=== PATIENT | female | born 1975 | race Caucasian/White ===

== ENCOUNTER 2020-10-24 01:57 | Emergency (ER) | payer OTHER ==
[2020-10-24 02:01] VITALS: TEMP 98.1
[2020-10-24] MEDS ORDERED: SODIUM CHLORIDE 0.9% 1,000 ML IV ONE (02:20)
[2020-10-24] MEDS ORDERED: methylPREDNISolone SOD SUCCI 125 MG/2 ML VIAL IV STA (02:20)
[2020-10-24] MEDS ORDERED: diphenhydrAMINE 50 MG/ML 1 ML VIAL IVP STA (02:20)
[2020-10-24] MEDS ORDERED: FAMOTIDINE 20 MG/2 ML VIAL IV STA (02:20)
--- NOTE | 2020-10-24 04:39 | ED ---
Allergic Reaction HPI - General Chief complaint: Allergic Reaction Stated complaint: Allergic Reaction Time Seen by Provider: 10/24/20 02:17 Source: patient, family Mode of arrival: ambulatory Limitations: no limitations - History of Present Illness Initial Comments: 44 year-old male patient presents to the emergency department for evaluation of allergic reaction. Patient states she took a new herbal supplement around 2pm. States that she developed rash, lip swelling, and throat swelling. Denies shortness of breath or wheezing. Denies any fever or chills. Reports midepigastric discomfort. 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 - Related Data Previous Rx's Medication Instructions Recorded EPINEPHrine (Auto Inject) [Epipen] 0.3 mg IM ONCE PRN #2 pen 10/24/20 Famotidine [Pepcid] 20 mg PO DAILY #5 tablet 10/24/20 predniSONE 50 mg PO DAILY #5 tablet 10/24/20 Allergies Allergy/AdvReac Type Severity Reaction Status Date / Time No Known Allergies Allergy Verified 10/24/20 02:01 Review of Systems ROS Statement: Those systems with pertinent positive or pertinent negative responses have been documented in the HPI. ROS Other: All systems not noted in ROS Statement are negative. Past Medical History Past Medical History: Asthma History of Any Multi-Drug Resistant Organisms: None Reported Past Surgical History: Cholecystectomy Past Psychological History: Anxiety, Depression Smoking Status: Never smoker Past Alcohol Use History: None Reported Past Drug Use History: None Reported General Exam Limitations: no limitations General appearance: alert, in no apparent distress, other (Physical well- developed, well-nourished adult female patient in no acute distress. Vital signs upon presentation temperature 98.1F, pulse 107, respirations 22, blood pressure 143/88, pulse ox 99% on room air.) ENT exam: Present: normal oropharynx, mucous membranes moist, other (Right lower lip swelling, uvular swelling, "hot potato" voice) Respiratory exam: Present: normal lung sounds bilaterally. Absent: respiratory distress, wheezes, rales, rhonchi, stridor Cardiovascular Exam: Present: regular rate, normal rhythm, normal heart sounds. Absent: systolic murmur, diastolic murmur, rubs, gallop, clicks GI/Abdominal exam: Present: soft, normal bowel sounds. Absent: distended, tenderness, guarding, rebound, rigid Neurological exam: Present: alert, oriented X3, CN II-XII intact Psychiatric exam: Present: normal affect, normal mood Skin exam: Present: warm, dry, intact, normal color, rash (Generalized urticaria, erythematous wheals with surrounding erythema.) Course Vital Signs 10/24/20 01:58 Temperature 98.1 F Pulse Rate 107 H Respiratory 22 Rate Blood Pressure 143/88 O2 Sat by Pulse 99 Oximetry Medical Decision Making - Medical Decision Making 44 year-old female patient presents to the emergency department for evaluation of generalized rash, lip swelling, and throat swelling after trying a new herbal supplement. Physical exam revealed generalized urticarial rash, right lower lip swelling, and uvula swelling. IV was started she was given steroids, benadryl, and pepcid. Patient had significant improvement in rash. Mild improvement in facial swelling. She was monitored for 3 hours and upon re-evaluation did have more improvement of facial swelling. She does feel comfortable being discharged at this time. She will be given prescription for epipen, steroids, and pepcid. She is instructed to follow-up with her primary care physician for recheck in 1- 2 days. Return parameters were discussed in detail. She verbalizes understanding and agrees this plan. Case discussed with my attending Dr. Beltran. Disposition Clinical Impression: Allergic reaction Disposition: HOME SELF-CARE Condition: Good Instructions (If sedation given, give patient instructions): Epinephrine (By injection), General Allergic Reaction (ED) Additional Instructions: Take medications as directed. Utilize epi pen if symptoms suddenly worsen. Return to the emergency department for any new, worsening, or concerning symptoms. Prescriptions: EPINEPHrine (Auto Inject) [Epipen] 0.3 mg IM ONCE PRN #2 pen PRN Reason: Anaphylaxis Famotidine [Pepcid] 20 mg PO DAILY #5 tablet predniSONE 50 mg PO DAILY #5 tablet Is patient prescribed a controlled substance at d/c from ED?: No Referrals: None,Stated [Primary Care Provider] - 1-2 days Time of Disposition: 05:21
[2020-10-24 05:32] VITALS: BP 123/78; PULSE 84; RESP 18
== END 2020-10-24 05:29 | disposition home or self-care (01) ==
LOC: EC 01:57
DX: T78.40XA Allergy, unspecified, initial encounter (principal); J45.909 Unspecified asthma, uncomplicated
CPT/HCPCS: 99283; 96374; 96375; 96361; J1200; J2930